=== PATIENT | female | born 1990 ===

== ENCOUNTER 2018-10-04 07:52 | Inpatient (IN) ==
[2018-10-04] MEDS ORDERED: ONDANSETRON 4 MG/2 ML VIAL IV PRN ×2 (08:01→18:12)
[2018-10-04] MEDS ORDERED: MEPERIDINE 50 MG/1 ML VIAL IV PRN (08:01)
[2018-10-04] MEDS ORDERED: BUTORPHANOL 2 MG/ML VIAL IV PRN (08:01)
[2018-10-04] MEDS ORDERED: LACTATED RINGERS 1,000 ML IV ONE (08:04)
[2018-10-04] MEDS ORDERED: NALOXONE 0.4 MG/ML VIAL IV PRN (08:04)
[2018-10-04] MEDS ORDERED: PROMETHAZINE 25 MG/1 ML VIAL IM ONE (08:04)
[2018-10-04] MEDS ORDERED: ePHEDrine 50 MG/ML AMP IV PRN (08:04)
[2018-10-04] MEDS ORDERED: FAMOTIDINE 20 MG/2 ML VIAL IV ONE (08:04)
[2018-10-04] MEDS ORDERED: diphenhydrAMINE 50 MG/1 ML VIAL IV PRN ×2 (08:04)
[2018-10-04] MEDS ORDERED: CITRIC ACID/SODIUM CITRATE 30 ML UDCUP PO ONE (08:04)
[2018-10-04] MEDS ORDERED: fentaNYL 2 MCG/ROPIV 0.2% EPID 100 ML EPIDURAL SCH (08:30)
[2018-10-04] MEDS ORDERED: OXYTOCIN/LR 20 UNIT/1,000 ML BAG IV SCH (08:30)
[2018-10-04] MEDS: LACTATED RINGERS 1,000 ML IV SCH ×2 (08:34→14:08)
[2018-10-04 08:36] LABS: Basophils % 0.3 % (0.0-0.8); Eosinophils # 0.1 10*3/uL (0.0-0.87); Eosinophils % 0.6 % (0.00-10.9); Hemoglobin 11.2 GM/DL (12.0-16.0); Immature Granulocytes % 0.6 %; Immature Granulocytes Absolute 0.07 #; Lymphocytes # 2.7 10*3/uL (1.4-4.0); Lymphocytes % 22.8 % (21.3-54.2); Mean Corpuscular HGB Conc 31.1 GM/DL (32-36); Mean Corpuscular Volume 84.9 FL (87-102); Mean Platelet Volume 10.6 FL (9.6-12.0); Monocytes % 7.3 % (1.7-12.7); Neutrophils % 68.4 % (38.7-73.9); Platelet Count 279 T/CUMM (130-400); Red Blood Count 4.24 MC/CUMM (3.8-5.5); White Blood Count 11.8 T/CUMM (4-12)
[2018-10-04 08:45] LABS: INR 0.9; PT Patient Result 9.4 SECS
[2018-10-04 08:57] LABS: Alanine Aminotransferase 11 U/L (13-56); Albumin 2.6 G/DL (3.4-5.0); Alkaline Phosphatase 173 U/L (45-117); Aspartate Amino Transferase 11 U/L (0-37); Bilirubin,Total < 0.39 MG/DL (0.2-1.0); Blood Urea Nitrogen 13 MG/DL (7-18); Calcium 8.6 MG/DL (8.5-10.1); Glucose 114 MG/DL (74-106); Osmolality,Calculated 279.4 MOS/KG (273-304); Total Protein 7.3 G/DL (6.4-8.3); Uric Acid 4.9 MG/DL (2.6-6.0)
[2018-10-04 12:58] LABS: Apearance,Urine CLEAR (Clear); Bilirubin,Urine Negative (Negative); Blood, Urine Negative (Negative); Glucose,Urine (UA) Negative (Negative); Ketones,Urine Negative (Negative); Mucus,Urine Occasional /LPF (Occasional); Nitrite,Urine Negative (Negative); Protein,Urine Negative; Squamous Epithelial Cell,Urine Occasional /HPF (0-10); Urine Color Yellow (Yellow); Urine Specific Gravity 1.018 (1.001-1.035)
[2018-10-04] MEDS ORDERED: LIDOCAINE 1% 50 ML VIAL ONE (13:48)
[2018-10-04] MEDS ORDERED: TRANEXAMIC ACID 1,000 MG/10 ML VIAL ONE (13:48)
[2018-10-04] MEDS ORDERED: miSOPROStol 200 MCG TABLET ONE (13:48)
[2018-10-04] MEDS ORDERED: METHYLERGONOVINE 0.2 MG/1 ML AMP ONE (13:49)
[2018-10-04 15:18] LABS: Cord Venous Blood PCO2 42.4 MMHG; Cord Venous Blood PO2 29.4
[2018-10-04 15:22] LABS: Cord Arterial Blood HCO3 20.9 MMOL/L
[2018-10-04] MEDS ORDERED: OXYTOCIN/LR 20 UNIT/1,000 ML BAG IV ONE (17:58)
[2018-10-04] MEDS ORDERED: ACETAMINOPHEN/CODEINE 300-30 MG TABLET PO PRN (18:12)
[2018-10-04] MEDS ORDERED: ACETAMINOPHEN 325 MG TABLET PO PRN (18:12)
[2018-10-04] MEDS ORDERED: WITCH HAZEL PADS 100/JAR TOP PRN (18:12)
[2018-10-04] MEDS ORDERED: MEASLES/MUMPS/RUBELLA VACCINE 0.5 ML VIAL SUBCUT ONE (18:12)
[2018-10-04] MEDS ORDERED: BENZOCAINE 20%/MENTHOL 0.5% SPRAY 56 GM CAN TOP PRN (18:12)
[2018-10-04] MEDS ORDERED: DIPH/TET/ACEL PERT BOOSTER VACCINE 0.5 ML VIAL IM ONE (18:12)
[2018-10-04] MEDS ORDERED: BISACODYL 10 MG SUPP RECTAL PRN (18:12)
[2018-10-04] MEDS ORDERED: HYDROCORTISONE 2.5% RECTAL CREAM 30 GM TUBE TOP PRN (18:12)
[2018-10-04] MEDS ORDERED: RHO(D) IMMUNE GLOBULIN 300 MCG SYRINGE IM ONE (18:12)
[2018-10-04] MEDS ORDERED: LANOLIN 50% CREAM 0.3 OZ TUBE TOP PRN (18:12)
[2018-10-04] MEDS ORDERED: oxyCODONE/ACETAMINOPHEN 5-325 MG TABLET PO PRN (18:12)
[2018-10-04] MEDS: IBUPROFEN 800 MG TABLET PO PRN (18:28)
[2018-10-04] MEDS: DOCUSATE SODIUM 100 MG CAPSULE PO SCH (20:15)
[2018-10-04] MEDS: oxyCODONE/ACETAMINOPHEN 5-325 MG TABLET PO PRN (22:15)
[2018-10-05 02:50] LABS: Basophils % 0.3 % (0.0-0.8); Eosinophils # 0.1 10*3/uL (0.0-0.87); Eosinophils % 0.9 % (0.00-10.9); Hematocrit 31.1 VOL% (35.7-47.0); Hemoglobin 9.8 GM/DL (12.0-16.0); Immature Granulocytes % 0.6 %; Immature Granulocytes Absolute 0.09 #; Lymphocytes % 21.7 % (21.3-54.2); Mean Corpuscular HGB Conc 31.5 GM/DL (32-36); Mean Corpuscular Volume 84.1 FL (87-102); Mean Platelet Volume 10.8 FL (9.6-12.0); Monocytes % 7.9 % (1.7-12.7); Neutrophils % 68.6 % (38.7-73.9); Platelet Count 215 T/CUMM (130-400); Red Cell Distribution Width 15.1 % (9.3-17.3)
[2018-10-05] MEDS: oxyCODONE/ACETAMINOPHEN 5-325 MG TABLET PO PRN ×2 (05:45→18:26)
[2018-10-05] MEDS: IBUPROFEN 800 MG TABLET PO PRN (05:45)
[2018-10-05] MEDS: FERROUS SULFATE 325 MG TABLET PO SCH ×2 (08:18→20:31)
[2018-10-05] MEDS: DOCUSATE SODIUM 100 MG CAPSULE PO SCH ×2 (08:18→20:31)
[2018-10-05] MEDS ORDERED: SERTRALINE 50 MG TABLET PO SCH (09:00)
[2018-10-06 07:39] VITALS: BP 125/70
[2018-10-06] MEDS ORDERED: SERTRALINE 50 MG TABLET PO SCH (09:00)
[2018-10-06] MEDS: DOCUSATE SODIUM 100 MG CAPSULE PO SCH (09:16)
[2018-10-06] MEDS: FERROUS SULFATE 325 MG TABLET PO SCH (09:16)
== END 2018-10-06 15:03 | disposition home or self-care (01) | DRG 560 ==
LOC: N.LDOUT 07:52 → N.LD 07:54 → N.OB 18:12
PROVIDERS: ADMIT Obstetrics & Gynecology; ATTEND Obstetrics & Gynecology